=== PATIENT | male | born 1990 | race Caucasian/White ===

== ENCOUNTER 2016-08-21 20:11 | Emergency (ER) | payer OTHER ==
[~2016-08-21] VITALS: Ht 180.3 cm; Wt 74.8 kg
[~2016-08-21 20:11] MED LIST: ADDERALL 30 MG30 MG PO; AMBIEN 5 MG TABL5 M1 PO; AMOXICILLIN 50500 M1 PO; BENADRYL25 MG PO; DOCUSATE SODIU100 MG PO; FLEXERIL PO; HYDROCODON-ACE1 EAC7 PO; MIRALAX255 GM PO; MOM PO; NOHOMEMEDICATIONS; NORCO 5-325 TA1 EACH PO; PENICILLIN V P500 MG PO; PEPCID20 MG PO; PERCOCET 5-3251 EACH; PREDNISONE 20 M20 MG PO; PREVACID 30MG C30 M1 PO; ULTRAM 50MG TAB50 MG PO; XANAX 0.5 MG0.5 M1 PO; ZOLOFT100 MG PO; ZYPREXA15 MG PO; ZYPREXA2.5 MG PO
[2016-08-21 21:21] LABS: ABSOLUTE NEUTROPHILS 9.9 thou/uL (1.4-8.2); BASOPHILS 0.6 % (0.0-2.0); EOSINOPHILS 2.1 % (0.0-3.0); HEMATOCRIT 43.7 % (42.0-52.0); LYMPHOCYTES 19.4 % (24.0-44.0); MCH 29.6 pg (26.0-34.0); MCHC 34.3 % (28.0-37.0); MCV 86.3 fL (80.0-100.0); PLATELET COUNT 329 thou/uL (150-400); POLYS 69.9 % (36.0-66.0); RBC 5.06 mil/uL (4.50-6.00); RDW 12.4 % (10.5-14.5); WBC 14.2 thou/uL (4.0-11.0)
[2016-08-21 21:23] LABS: MANUAL DIFF NO
[2016-08-21 21:33] LABS: CALCIUM 9.1 mg/dL (8.5-10.1); CREATININE 0.9 mg/dL (0.6-1.3); POTASSIUM 3.7 mmol/L (3.5-5.1)
[2016-08-21 21:53] LABS: AMP/METHAMP Negative (Negative); BARBITURATES Negative (Negative); BENZODIAZEPINES Negative (Negative); COCAINE Negative (Negative); METHADONE Negative (Negative); OPIATES POSITIVE (Negative); PCP Negative (Negative); THC Negative (Negative)
[2016-08-21 21:55] LABS: SALICYLATE < 2.8 mg/dL (2.8-20.0)
[2016-08-21 22:04] LABS: ACETAMINOPHEN < 2 ug/mL (10-30)
[2016-08-22 01:14] VITALS: BP 120/87
== END 2016-08-22 01:16 | disposition home or self-care (01) ==
LOC: ER 20:11
PROVIDERS: Emergency Medicine; Nurse Practitioner
DX: F28 Other psychotic disorder not due to a substance or known physiological condition (principal); F20.9 Schizophrenia, unspecified; F90.9 Attention-deficit hyperactivity disorder, unspecified type; F17.210 Nicotine dependence, cigarettes, uncomplicated; F15.21 Other stimulant dependence, in remission; Z88.8 Allergy status to other drugs, medicaments and biological substances; Z59.0 Homelessness

== ENCOUNTER 2016-11-11 11:51 | Emergency (ER) | payer OTHER ==
[~2016-11-11] VITALS: Ht 180.3 cm; Wt 81.7 kg
[2016-11-11 11:55] VITALS: BP 127/95
[2016-11-11] MEDS ORDERED: NAPROSYN500 MG PO (12:30)
== END 2016-11-11 12:53 | disposition home or self-care (01) ==
LOC: ER 11:51
DX: M25.512 Pain in left shoulder (principal); F90.9 Attention-deficit hyperactivity disorder, unspecified type; F17.210 Nicotine dependence, cigarettes, uncomplicated; Z88.8 Allergy status to other drugs, medicaments and biological substances

== ENCOUNTER 2016-12-25 12:19 | Emergency (ER) | payer OTHER ==
[~2016-12-25] VITALS: Ht 180.3 cm; Wt 79.8 kg
[~2016-12-25 12:19] MED LIST changes: +NAPROSYN500 MG PO
[2016-12-25 13:00] LABS: BASOPHILS 0.6 % (0.0-2.0); EOSINOPHILS 2.7 % (0.0-3.0); HEMATOCRIT 47.4 % (42.0-52.0); HEMOGLOBIN 16.6 gm/dL (14.0-18.0); LYMPHOCYTES 22.3 % (24.0-44.0); MANUAL DIFF NO; MCH 30.1 pg (26.0-34.0); MCV 86.1 fL (80.0-100.0); MONOCYTES 8.2 % (1.0-8.0); PLATELET COUNT 322 thou/uL (150-400); POLYS 66.2 % (36.0-66.0); RBC 5.51 mil/uL (4.50-6.00); RDW 12.4 % (10.5-14.5); WBC 7.6 thou/uL (4.0-11.0)
[2016-12-25 13:04] LABS: CALCIUM 9.1 mg/dL (8.5-10.1); CREATININE 0.8 mg/dL (0.7-1.3); POTASSIUM 4.2 mmol/L (3.5-5.1)
[2016-12-25 13:08] LABS: ALBUMIN 4.2 g/dL (3.4-5.0); TOTAL BILIRUBIN 0.6 mg/dL (<0.1-1.0); TOTAL PROTEIN 7.6 g/dL (6.4-8.2)
[2016-12-25] MEDS ORDERED: PROAIR HFA8.5 GM INH (13:13)
[2016-12-25] MEDS ORDERED: TESSALON PERLE100 MG PO (13:13)
[2016-12-25 14:16] VITALS: BP 111/68
== END 2016-12-25 14:17 | disposition home or self-care (01) ==
LOC: ER 12:19
PROVIDERS: Emergency Medicine
DX: J20.8 Acute bronchitis due to other specified organisms (principal); F90.9 Attention-deficit hyperactivity disorder, unspecified type; F17.210 Nicotine dependence, cigarettes, uncomplicated; Z88.8 Allergy status to other drugs, medicaments and biological substances

== ENCOUNTER 2019-09-08 20:46 | Emergency (ER) | payer OTHER ==
[~2019-09-08] VITALS: Ht 180.3 cm; Wt 74.8 kg
[~2019-09-08 20:46] MED LIST changes: +PROAIR HFA8.5 GM INH; +TESSALON PERLE100 MG PO
[2019-09-08 23:07] LABS: AMP/METHAMP POSITIVE (Negative); BARBITURATES Negative (Negative); BENZODIAZEPINES Negative (Negative); COCAINE Negative (Negative); METHADONE Negative (Negative); OPIATES Negative (Negative); PCP Negative (Negative)
[2019-09-08] MEDS ORDERED: MOBIC15 MG PO (23:38)
[2019-09-08 23:48] VITALS: BP 134/83
[2019-09-09] MEDS ORDERED: NAPROSYN500 M1 PO (00:04)
== END 2019-09-09 00:08 | disposition home or self-care (01) ==
LOC: ER 20:46
PROVIDERS: Emergency Medicine
DX: M25.512 Pain in left shoulder (principal); M25.569 Pain in unspecified knee; F19.10 Other psychoactive substance abuse, uncomplicated; F20.9 Schizophrenia, unspecified; F17.210 Nicotine dependence, cigarettes, uncomplicated; Z88.8 Allergy status to other drugs, medicaments and biological substances; Z79.899 Other long term (current) drug therapy

== ENCOUNTER 2019-09-12 14:48 | Emergency (ER) | payer OTHER ==
[~2019-09-12] VITALS: Ht 180.3 cm; Wt 74.8 kg
[~2019-09-12 14:48] MED LIST changes: +MOBIC15 MG PO; +NAPROSYN500 M1 PO
[2019-09-12 15:44] LABS: URINE BILIRUBIN NEGATIVE (Negative); URINE BLOOD NEGATIVE (Negative); URINE CLARITY CLEAR; URINE COLOR YELLOW; URINE GLUCOSE-RANDOM* NEGATIVE (Negative); URINE KETONES NEGATIVE (Negative); URINE LEUKOCYTES-REFLEX NEGATIVE (Negative); URINE NITRITE-REFLEX NEGATIVE (Negative); URINE PROTEIN (DIPSTICK) NEGATIVE (Negative); URINE UROBILINOGEN 0.2 E.U./dl (0.2-1.0)
[2019-09-12 16:04] LABS: ABSOLUTE NEUTROPHILS 7.8 thou/uL (1.4-8.2); BASOPHILS 1.1 % (0.0-2.0); EOSINOPHILS 2.9 % (0.0-3.0); HEMATOCRIT 49.5 % (42.0-52.0); HEMOGLOBIN 16.7 gm/dL (14.0-18.0); LYMPHOCYTES 18.4 % (24.0-44.0); MCH 29.7 pg (26.0-34.0); MCHC 33.8 g/dL (28.0-37.0); MONOCYTES 7.3 % (1.0-8.0); PLATELET COUNT 386 thou/uL (150-400); POLYS 70.3 % (36.0-66.0); RBC 5.62 mil/uL (4.50-6.00); RDW 12.4 % (10.5-14.5); WBC 11.1 thou/uL (4.0-11.0)
[2019-09-12 16:10] LABS: CALCIUM 9.3 mg/dL (8.5-10.1); CREATININE 0.9 mg/dL (0.7-1.3); POTASSIUM 3.9 mmol/L (3.5-5.1)
[2019-09-12] MEDS ORDERED: NAPROSYN500 MG PO ×2 (16:27→16:29)
[2019-09-12 16:42] VITALS: BP 122/82
== END 2019-09-12 16:43 | disposition home or self-care (01) ==
LOC: ER 14:48
PROVIDERS: Nurse Practitioner Family
DX: F15.10 Other stimulant abuse, uncomplicated (principal); R53.1 Weakness; F90.9 Attention-deficit hyperactivity disorder, unspecified type; F17.210 Nicotine dependence, cigarettes, uncomplicated

== ENCOUNTER 2019-09-14 01:47 | Emergency (ER) | payer OTHER ==
[~2019-09-14] VITALS: Ht 182.9 cm; Wt 74.8 kg
[2019-09-14 02:46] VITALS: BP 129/86
== END 2019-09-14 02:50 ==
LOC: ER 01:47
DX: R68.84 Jaw pain (principal); G89.29 Other chronic pain; F90.9 Attention-deficit hyperactivity disorder, unspecified type; F17.210 Nicotine dependence, cigarettes, uncomplicated

== ENCOUNTER 2020-01-29 10:30 | Emergency (ER) | payer OTHER ==
[~2020-01-29] VITALS: Ht 180.3 cm; Wt 77.1 kg
[2020-01-29] MEDS ORDERED: OLANZAPINE15 MG PO ×2 (11:51→12:12)
[2020-01-29] MEDS ORDERED: DIFLUNISAL500 MG PO (11:51)
[2020-01-29] MEDS ORDERED: TRAMADOL 50 MG50 MG PO (11:52)
[2020-01-29] MEDS ORDERED: MOBIC15 MG PO (12:12)
[2020-01-29 12:48] VITALS: BP 122/74
== END 2020-01-29 12:49 | disposition home or self-care (01) ==
LOC: ER 10:30
DX: S43.492A Other sprain of left shoulder joint, initial encounter (principal); F20.9 Schizophrenia, unspecified; F90.9 Attention-deficit hyperactivity disorder, unspecified type; F17.210 Nicotine dependence, cigarettes, uncomplicated; Z79.899 Other long term (current) drug therapy; X50.3XXA Overexertion from repetitive movements, initial encounter; Y93.55 Activity, bike riding; Y92.488 Other paved roadways as the place of occurrence of the external cause; Y99.8 Other external cause status

== ENCOUNTER 2020-02-19 23:02 | Emergency (ER) | payer OTHER ==
[~2020-02-19] VITALS: Ht 172.7 cm; Wt 81.7 kg
[~2020-02-19 23:02] MED LIST changes: +DIFLUNISAL500 MG PO; +OLANZAPINE15 MG PO; +TRAMADOL 50 MG50 MG PO; +ZYPREXA 10 MG T10 MG PO
[2020-02-20 00:49] VITALS: BP 132/70
== END 2020-02-20 00:49 | disposition home or self-care (01) ==
LOC: ER 23:02
DX: M54.6 Pain in thoracic spine (principal); M54.5 Low back pain; Z59.0 Homelessness; F17.210 Nicotine dependence, cigarettes, uncomplicated; Z88.8 Allergy status to other drugs, medicaments and biological substances

== ENCOUNTER 2020-11-28 01:26 | Emergency (ER) | payer OTHER ==
[~2020-11-28] VITALS: Ht 180.3 cm; Wt 70.3 kg
[2020-11-28 02:18] VITALS: BP 115/67
== END 2020-11-28 02:21 | disposition home or self-care (01) ==
LOC: ER 01:26
DX: S00.03XA Contusion of scalp, initial encounter (principal); F12.90 Cannabis use, unspecified, uncomplicated; F15.90 Other stimulant use, unspecified, uncomplicated; F17.210 Nicotine dependence, cigarettes, uncomplicated; Z88.8 Allergy status to other drugs, medicaments and biological substances; W22.8XXA Striking against or struck by other objects, initial encounter; Y93.89 Activity, other specified; Y92.89 Other specified places as the place of occurrence of the external cause; Y99.9 Unspecified external cause status